=== PATIENT | male | born 2000 | race Caucasian/White ===

== ENCOUNTER 2022-12-06 11:44 | Emergency (ER) | payer OTHER ==
[2022-12-06] MEDS ORDERED: Ketorolac Tromethamine 30 MG/ML VIAL ONE (12:36)
== END 2022-12-06 13:30 | disposition home or self-care (01) ==
LOC: CSHERS 11:44
DX: N45.1 Epididymitis (principal)
CPT/HCPCS: 76870; 93976; J1885